=== PATIENT | female | born 1990 | race Caucasian/White ===

== ENCOUNTER → 2016-09-09 | Outpatient (CLI) | payer OTHER ==
[~2016-09-09] MED LIST: CHOL100027 PO; CLR10 PO; DOCU-94 PO; INSU70IN2 SC; MTR600X PO; NVLGI7030 SC; OXYC-57 PO; PRENTAB26 PO; SERT-234 PO
== END | disposition home or self-care (01) ==
LOC: C.LABSPEC 11:03
PROVIDERS: ATTEND Obstetrics & Gynecology
DX: O24.414 Gestational diabetes mellitus in pregnancy, insulin controlled (principal)

== ENCOUNTER 2016-09-17 22:53 | Observation (INO) | payer OTHER ==
[~2016-09-17] VITALS: Ht 160 cm; Wt 115.0 kg
[~2016-09-17 22:53] MED LIST changes: -DOCU-94 PO; -INSU70IN2 SC; -MTR600X PO; -NVLGI7030 SC; -OXYC-57 PO; -SERT-234 PO
[2016-09-17 23:48] VITALS: Ht 160 cm; Wt 115.0 kg
[2016-09-17] MEDS ORDERED: INSU70IN2 SC ×2 (23:54)
[2016-09-17] MEDS ORDERED: NVLGI7030 SC ×2 (23:55)
[2016-09-17] MEDS ORDERED: SERT-234 PO ×2 (23:56)
[2016-09-17] MEDS ORDERED: DOCU-94 PO ×2 (23:56)
[2016-09-18] MEDS ORDERED: IV FLUIDS COMPLETED PRN (01:41)
--- NOTE | 2016-09-22 10:43 | DISCHARGE SUMMARY ---
The patient was seen in labor and delivery for irregular contractions. Her cervix was closed, soft and -2 station. After several hours, she had cervical exam remained unchanged and contractions had spaced out. The patient was sent home in good condition. heart rate was category 1 the entire time in labor and delivery. She was given instructions to call for contractions that were stronger, ruptured membranes, heavy vaginal bleeding or any other concerns.
[2016-09-23] MEDS ORDERED: MTR600X PO ×2 (06:34)
[2016-09-23] MEDS ORDERED: OXYC-57 PO ×2 (06:34)
== END 2016-09-18 01:41 | disposition home or self-care (01) ==
LOC: C.LD 22:53 → C.OPB 22:53 → C.LD 09-18 01:29
PROVIDERS: ADMIT Obstetrics & Gynecology; ATTEND Obstetrics & Gynecology
DX: O62.9 Abnormality of forces of labor, unspecified (principal); O24.414 Gestational diabetes mellitus in pregnancy, insulin controlled; Z3A.37 37 weeks gestation of pregnancy

== ENCOUNTER 2016-09-21 06:31 | Inpatient (IN) | payer OTHER ==
[2016-09-21] VITALS (16 sets, daily range): BP systolic 119–154; BP diastolic 75–92; PULSE 89–106; TEMP 36.6–37; O2SAT 97–100; Ht 160 cm; Wt 113.6 kg
[~2016-09-21] VITALS: Ht 160 cm; Wt 113.6 kg
[~2016-09-21 06:31] MED LIST changes: +CEFAZOLIN IV 3,000 MG in DEXTROSE 5% 50ML 50 ML IV SCH; +DOCU-94 PO; +INSU70IN2 SC; +NVLGI7030 SC; +SERT-234 PO
[2016-09-21] MEDS ORDERED: LACTATED RINGER'S 1000ML 1,000 ML IV ONE (06:38)
[2016-09-21] MEDS ORDERED: LACTATED RINGER'S 1000ML 1,000 ML IV SCH ×2 (06:38→08:37)
[2016-09-21] MEDS ORDERED: CITRIC ACID/SODIUM CITRATE 15 ML UDC PO ONE (06:45)
[2016-09-21 07:08] LABS: HEMATOCRIT 39.7 % (37-47); MEAN CORPUSCULAR HGB CONC 33.8 g/dl (32-36); MEAN PLATELET VOLUME 10.4 fL (7.4-10.4); PLATELET COUNT 126 K/uL (130-400); RED BLOOD COUNT 4.96 M/uL (4.2-5.4); WHITE BLOOD COUNT 8.66 K/uL (4.8-10.8)
--- NOTE | 2016-09-21 07:10 | Medical Student: [facility] ---
Med Student History & Physical Date of Service Sep 21, 2016. Chief Complaint Check Ruptured Membranes History of Present Illness Source: patient, clinic records This is 26 year-old female with GA 38 weeks (SAFIA 10/05/2016) presented with rupture of membrane at 5:30 AM today and contractions q2-3min. She states that there were vaginal fluid with blood. movement is present. She denies cramping or pain. She came to L&D on Sep 18, 2015 with c/o contractions and got discharged after 6hrs of observation. Her course of is uncomplicated except for gestational diabetes. She is AB+, GBS-, Rubella immune. 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 Menarche 9 Menstrual cycle is normal prior to every 32 days Last pap 03/06/2015 - normal Past Medical History Depression Vitamin D deficiency Chicken pox Hx of genital herpes infection Past Surgical History C-sections (three) Family History Father - heart disease (unspecified) Social History Smoking Status: Never Smoker Smokeless Tobacco Use: No Alcohol Use: none Drug Use: none Marital Status: Housing status: lives with family Occupational Status: other (homemaker) Allergies Coded Allergies: Adhesives (Verified Allergy, Mild, RASH, 09/17/16) Iodinated Diagnostic Agents (Verified Allergy, Unknown, Rash, 02/15/16) CAT scan Home Medications Cholecalciferol (Vitamin D 1000 Unit), 3,000 INTER.UNIT PO DAILY Docusate Sodium (Colace), 2 CAP PO BID Insulin Aspart 70/30 (Novolog Mix 70/30), 10 SC AC Insulin Isophan/Regular (Novolin 70/30), 35 SC QPM Loratadine (Claritin), 10 MG PO DAILY Multivit/Min/Iron/Fol Ac/Pren ( Vitamin), 1 TAB PO DAILY Sertraline (Zoloft), 100 MG PO DAILY Review of Systems Constitutional: No chills, No fever Respiratory: No shortness of breath Cardiovascular: No chest pain Abdomen: No nausea, No pain Genitourinary - Female: + vaginal bleeding, + vaginal discharge Allergic / Immunologic: + seasonal allergies Physical Exam General Appearance: WD/WN Head: atraumatic Eyes: normal inspection ENT: hearing grossly normal Neck: supple Respiratory/Chest: lungs clear, normal breath sounds Cardiovascular: regular rate, rhythm (for ), no murmur Abdomen / GI: + pertinent finding () Genitourinary - Female: + pertinent finding (Exam today ) Extremities: normal inspection Skin: normal color Monitoring External Monitor: assessment - FHR 130-140, moderate variable, acceleration, no deceleration. Laboratory Results Test 09/21/16 06:38 Assessment and Plan This is 26 yo female with GA 38 weeks presented with rupture membrane, contraction q2-3min, and She had 3 prior C-sections Blood type AB+, GBS-, Rubella immune Plan with BTL
[2016-09-21] MEDS ORDERED: OXYTOCIN INJ 10 UNITS/ML VIAL ONE ×2 (07:22→08:16)
[2016-09-21] MEDS ORDERED: FENTANYL CITRATE INJ 50 MCG/1 ML 2 ML VIAL ONE (07:22)
[2016-09-21] MEDS ORDERED: MoRPHine SULFATE PF 1 MG/ML 10 ML AMP/VIAL ONE (07:22)
[2016-09-21] MEDS ORDERED: PHENYLEPHRINE HCL INJ 10 MG/ML VIAL ONE (07:23)
[2016-09-21] MEDS ORDERED: NALOXONE HCL INJ 1 MG in SODIUM CHLORIDE 0.9% 1000ML 1,000 ML IV PRN (08:19)
[2016-09-21] MEDS ORDERED: SODIUM CHLORIDE 0.9% 1000ML 1,000 ML IV PRN (08:19)
[2016-09-21] MEDS ORDERED: LACTATED RINGER'S 1000ML 500 ML IV PRN (08:19)
[2016-09-21] MEDS ORDERED: NALOXONE HCL INJ 0.08 MG in SYRINGE 1.8 ML IV PRN (08:19)
[2016-09-21] MEDS ORDERED: NALOXONE HCL 0.4 MG/1 ML VIAL/CARP IV PRN (08:30)
[2016-09-21] MEDS ORDERED: NO NARCOTICS OR SEDATIVES SCH (08:30)
[2016-09-21] MEDS ORDERED: MEPERIDINE HCL 25 MG/ML CARP IV PRN (08:30)
[2016-09-21] MEDS ORDERED: ONDANSETRON INJ 2 MG/ML 2 ML VIAL IV PRN (08:30)
[2016-09-21] MEDS ORDERED: MoRPHine SULFATE PF 1 MG/ML 10 ML AMP/VIAL EPI PRN (08:30)
[2016-09-21] MEDS ORDERED: MoRPHine SULFATE 2 MG/ML CARP IV PRN (08:30)
[2016-09-21] MEDS ORDERED: EpHEDrine SULFATE INJ 50 MG/ML AMP IV PRN (08:30)
[2016-09-21] MEDS ORDERED: SENNA 8.6 MG TAB PO PRN (08:45)
[2016-09-21] MEDS ORDERED: DC PCA PRN (08:45)
[2016-09-21] MEDS ORDERED: DIPHTHERIA/TETANUS/PERTUSSIS 0.5 ML SYR/VIAL IM. ONE (08:45)
[2016-09-21] MEDS ORDERED: MAGNESIUM HYDROXIDE SUSP 30 ML UDC PO PRN (08:45)
[2016-09-21] MEDS ORDERED: LANOLIN OINT EXT PRN ×2 (08:45)
--- NOTE | 2016-09-21 08:45 | [facility] Post Operative Brief Note ---
Immediate Operative Summary Operative Date Sep 21, 2016. Pre-Operative Diagnosis 26yo @ 38 0/7w H/o x 3 Spontaneous labor, SROM GDMA2 Depression Post-Operative Diagnosis Same Procedure(s) Performed Repeat low transverse section, bilateral tubal ligation Surgeon Caitlin Christensen DO Apple Picker Surgeon(s) Reggie Sandra MD Estimated Blood Loss 600ml Findings Viable female . Apgars 2/6/8. Weight pending. Normal uterus, tubes, ovaries. Fluids (cc crystalloids) 2300cc Specimens Placenta, membranes Bilateral fallopian tube sections Cord gas Drains reeder to gravity, 80cc clear yellow Anesthesia spinal Complication(s) None Disposition L&D
--- NOTE | 2016-09-21 08:53 | Medical Student: [facility] ---
Immediate Operative Summary Operative Date Sep 21, 2016. Pre-Operative Diagnosis . BTL. 3 prior C-sections. Post-Operative Diagnosis Same Procedure(s) Performed Low transverse BTL Surgeon Dr. Christensen Authorizer Surgeon(s) Dr. Sandra Estimated Blood Loss 600cc Findings Viable female infant. Normal uterus, ovaries, and fallopian tubes. Fluids (cc crystalloids) 2300cc Specimens Cord blood Placenta Fallopian tube sections - bilateral Drains Alex catheter Anesthesia Epidural Complication(s) None Disposition L&D
[2016-09-21] MEDS: SIMETHICONE 80 MG CHEW PO SCH ×4 (09:00→19:49)
[2016-09-21] MEDS: DiphenhydrAMINE HCL 50 MG/ML VIAL IV PRN ×3 (09:00→19:49)
[2016-09-21] MEDS: NALBUPHINE HCL INJ 10 MG/ML AMP IV PRN ×4 (09:19→22:18)
--- NOTE | 2016-09-21 09:30 | OPERATIVE REPORT ---
DATE OF OPERATION: 09/21/2016 PREOPERATIVE DIAGNOSIS: 1. A 26-year-old G4, P3-0-0-3 at 38 weeks 0 days. 2. History of section x3. 3. Spontaneous labor with spontaneous rupture of membranes. 4. GDMA2. 5. Depression. POSTOPERATIVE DIAGNOSIS: Same. PROCEDURES PERFORMED: Repeat low transverse section with bilateral tubal ligation. SURGEON: Irma Christensen D.O. TICKET AGENT: Bonnie Sandra M.D. ESTIMATED BLOOD LOSS: 600 mL. FINDINGS: Viable female , Apgars 2, 6 and 8, weight pending, please see nursing notes. Normal uterus, tubes, and ovaries. FLUIDS: 2300 mL. SPECIMENS: Placenta and membranes, bilateral fallopian tubes sections, and cord gas. DRAINS: Alex to gravity, 80 mL clear yellow at the conclusion of the case. ANESTHESIA: Spinal. COMPLICATIONS: None. DISPOSITION: Labor and delivery. INDICATIONS FOR PROCEDURE: The patient is a 26-year-old G4, P3-0-0-3 at 38 and 0 who presented in spontaneous labor. She had grossly ruptured membranes and with history of section x3, we proceeded to section. DESCRIPTION OF PROCEDURE: The patient signed informed consent for both repeat section and tubal ligation. She was then taken to the operating room where spinal anesthesia was introduced. She was then prepared and draped in the usual sterile fashion in the supine position with a leftward tilt. Three grams of Ancef was infused prior to skin incision. The skin incision was made with a scalpel and carried through to the underlying layer of fascia with Bovie. The fascia was nicked at midline and using Bovie over hemostat technique, the incision was extended bilaterally. The superior aspect of the fascial incision was grasped with Wilfrid clamps x2, elevated off the underlying rectus abdominis muscles and dissected both bluntly and with Bovie. In a similar fashion, the inferior aspect of the incision was dissected. The muscles were at midline with hemostats and the peritoneum was entered bluntly digitally. The bladder blade was placed. The abdomen was inspected. A bladder flap was made using Metzenbaum scissors and Vietnamese forceps. The bladder blade was replaced. The uterine incision was made with a new scalpel and extended bilaterally bluntly. The was delivered from a cephalic presentation. The head delivered first, no nuchal cord was noted, followed by the shoulders, followed by the body. The cord was doubly clamped and cut and the baby was immediately handed off to the waiting pediatrics team. A segment of cord was retained for cord blood gases. Cord blood was obtained. The placenta was delivered spontaneously intact with a 3-vessel cord using gentle traction. The uterus was then exteriorized from the abdomen. The bladder blade was replaced and a left-sided extension of the uterine incision was noted. This was repaired incorporated into the hysterotomy repair using 0 Vicryl in a running locked stitch. The posterior uterus was evaluated and appeared normal. An additional [id number] suture of 0 Vicryl was used to obtain excellent hemostasis at the hysterotomy incision. The tubal ligation was then performed, the right fallopian tube was grasped with a [place] clamp. This was confirmed to be the tube as fimbriae were noted. The tube was ligated x2 with 3-0 chromic. A segment of tube was then removed and cautery was used to obtain hemostasis. In a similar fashion, the left tube was ligated. The uterus was then returned to the abdomen. The hysterotomy incision was again inspected and excellent hemostasis was noted. The gutters were cleared of all clots and debris. The fascia was then reapproximated using 0 Vicryl in a running stitch. Two layers of plain gut 2-0 suture were used to reapproximate the subcutaneous adipose tissue and the skin was reapproximated using 4-0 Vicryl in a running subcuticular stitch. Steri-Strips and a bandage were applied. The patient was then taken from the operating room to her labor and delivery room in stable and good condition. I attest to the content of the Intraoperative Record and any orders documented therein. Any exceptio ns are noted below.
[2016-09-21] MEDS: OXYTOCIN INJ 20 UNITS in LACTATED RINGER'S 1000ML 1,000 ML IV SCH ×2 (09:38→18:52)
--- NOTE | 2016-09-21 10:16 | Anesthesiology Progress Note ---
Anesthesia Post Op Note Date & Time Sep 21, 2016 at 10:15 Notes Mental Status: alert / awake / arousable, participated in evaluation Pt Amnestic to Procedure: Yes Nausea / Vomiting: adequately controlled Pain: adequately controlled Airway Patency, RR, SpO2: stable & adequate BP & HR: stable & adequate Hydration State: stable & adequate Neuraxial Anesthesia: was administered, sensory block is resolving Anesthetic Complications: no major complications apparent
[2016-09-21] MEDS: KETOROLAC TROMETHAMINE 30 MG/ML VIAL IV. PRN ×2 (12:07→22:17)
[2016-09-21] MEDS: DOCUSATE SODIUM 100 MG CAP PO SCH (19:49)
[2016-09-21] MEDS: CHOLECALCIFEROL 1000 INTER.UNIT TAB PO SCH (22:19)
[2016-09-22] VITALS: O2SAT 96
[2016-09-22] MEDS ORDERED: MEPERIDINE HCL 75 MG/ML CARP IV PRN (02:00)
[2016-09-22] MEDS ORDERED: MEPERIDINE HCL 50 MG/ML CARP IV PRN (02:00)
[2016-09-22] MEDS ORDERED: DC INTRASPINAL MORPHINE ONE (02:00)
[2016-09-22] MEDS ORDERED: OXYCODONE/ACETAMINOPHEN 5-325 TAB PO PRN (02:00)
[2016-09-22] MEDS ORDERED: KETOROLAC TROMETHAMINE 30 MG/ML VIAL IV. PRN (02:00)
[2016-09-22] MEDS ORDERED: DiphenhydrAMINE HCL 50 MG/ML VIAL IV PRN (02:00)
[2016-09-22] MEDS: IBUPROFEN 600 MG TAB PO PRN ×5 (03:13→21:39)
[2016-09-22] MEDS: OXYCODONE/ACETAMINOPHEN 5-325 TAB PO PRN ×5 (03:14→21:39)
[2016-09-22 04:15] VITALS: BP 116/75; PULSE 95; TEMP 36.7; O2SAT 98
--- NOTE | 2016-09-22 06:50 | Progress Note ---
Subjective Sep 22, 2016. Subjective conversation w/ patient, physical exam Ambulation: ambulating normally Voiding: no voiding problems Passing Gas: Yes Diet Tolerance: Regular Diet Lochia: Small Feeding Type: Breast Feeding Pain: Incisional pain well controlled with Motrin and Percocet Review of Systems Constitutional: No chills, No fever Respiratory: No cough, No shortness of breath Cardiac: No chest pain Breast: No breast pain Abdomen: No nausea, No pain, No vomiting Female : No dysuria Objective Vital Signs Date Time Temp Pulse Resp B/P Pulse Ox O2 Delivery O2 Flow Rate FiO2 09/22/16 04:15 36.7 95 20 116/75 98 Room Air 09/22/16 00:00 16 96 09/21/16 23:25 99 Room Air 09/21/16 23:25 36.8 98 18 137/85 99 Room Air 09/21/16 23:00 18 99 09/21/16 22:00 18 98 09/21/16 21:00 16 97 09/21/16 20:30 37.0 94 16 119/75 98 Room Air 09/21/16 20:00 16 98 09/21/16 18:54 18 98 09/21/16 17:58 18 100 09/21/16 17:00 18 98 09/21/16 16:15 18 98 09/21/16 15:15 36.9 94 18 130/77 97 Room Air 09/21/16 15:15 18 97 09/21/16 15:15 97 Room Air 09/21/16 14:10 18 97 09/21/16 14:10 36.9 89 89 131/80 97 Room Air 09/21/16 13:00 36.6 90 18 131/81 98 Room Air 09/21/16 13:00 18 98 09/21/16 12:00 36.6 96 18 140/75 97 Room Air 09/21/16 12:00 18 97 09/21/16 11:30 36.8 106 18 154/92 98 Room Air 09/21/16 11:05 89 18 132/84 98 Room Air 09/21/16 11:05 18 98 09/21/16 11:05 98 Room Air 09/21/16 11:05 98 Room Air Physical Exam General Appearance: WELL-APPEARING, WD/WN, NO APPARENT DISTRESS Respiratory/Chest: lungs clear, normal breath sounds Cardiovascular: regular rate, rhythm, no gallop, no murmur Abdomen: non tender, soft Fundus: Firm, Relation to Umbilicus (1cm below umbilicus) Incision Description: Clean, Dry & Intact Extremities: no calf tenderness Laboratory Results Last 24 Hours Test 09/21/16 06:50 09/21/16 07:26 09/21/16 12:17 09/22/16 06:07 White Blood Count 8.66 K/uL Red Blood Count 4.96 M/uL Hemoglobin 13.4 g/dL Hematocrit 39.7 % Mean Corpuscular Volume 80.0 fL Mean Corpuscular Hemoglobin 27.0 pg Mean Corpuscular Hemoglobin Concent 33.8 g/dl RDW Standard Deviation 44.2 fL RDW Coefficient of Variation 15.2 % Platelet Count 126 K/uL Mean Platelet Volume 10.4 fL Bedside Glucose 83 mg/dl 98 mg/dl Medications Current Inpatient Medications Medications (Trade) Dose Ordered Sig/Kiel Route Start Time Stop Time Status Last Admin Dose Admin Oxytocin 20 units/ Lactated Ringer's 1,002 ml @ 125 mls/hr Q8H1M IV 09/21/16 08:37 10/21/16 08:36 09/21/16 18:52 125 MLS/HR Lactated Ringer's (Lr 1000ml) 1,000 ml @ 125 mls/hr Q8H IV 09/21/16 08:37 10/21/16 08:36 Ketorolac Tromethamine (Toradol Inj) 30 mg Q6H PRN IV. 09/22/16 02:00 09/26/16 01:59 Meperidine HCl (Demerol Inj) 50 mg Q4H PRN IV 09/22/16 02:00 10/06/16 01:59 Meperidine HCl (Demerol Inj) 75 mg Q4H PRN IV 09/22/16 02:00 10/06/16 01:59 Oxycodone/ Acetaminophen (Percocet 5-325mg Tab) 1 tab Q4H PRN PO 09/22/16 02:00 10/06/16 01:59 09/22/16 03:14 1 TAB Oxycodone/ Acetaminophen (Percocet 5-325mg Tab) 2 tab Q4H PRN PO 09/22/16 02:00 10/06/16 01:59 Ibuprofen (Motrin Tab) 600 mg Q4H PRN PO 09/21/16 08:45 10/21/16 08:44 09/22/16 03:13 600 MG Prenat Multivit/ [place]/Iron/Folic Ac ( Vitamin Tab) 1 tab DAILY PO 09/22/16 08:00 10/22/16 07:59 Bisacodyl (Dulcolax Tab) 5 mg HS ONCE PO 09/22/16 22:00 09/22/16 22:01 Bisacodyl (Dulcolax Supp) 10 mg PRN PRN NC 09/23/16 08:45 10/23/16 08:44 Docusate Sodium (coLACE CAP) 100 mg BID PO 09/21/16 20:00 10/21/16 19:59 09/21/16 19:49 100 MG Magnesium Hydroxide (Milk Of Magnesia Susp) 30 ml HS PRN PO 09/21/16 08:45 10/21/16 08:44 Lanolin (Lanolin Oint) PRN PRN EXT 09/21/16 08:45 10/21/16 08:44 Simethicone (Mylicon Chew Tab) 80 mg QID PO 09/21/16 09:00 10/21/16 08:59 09/21/16 19:49 80 MG Diphenhydramine HCl (Benadryl Cap) 25 mg QID PRN PO 09/22/16 02:00 10/22/16 01:59 09/22/16 04:16 25 MG Diphenhydramine HCl (Benadryl Inj) 25 mg QID PRN IV 09/22/16 02:00 10/22/16 01:59 Senna (Senokot Tab) 17.2 mg HS PRN PO 09/21/16 08:45 10/21/16 08:44 Sertraline HCl (Zoloft Tab) 100 mg QAM PO 09/22/16 08:00 10/22/16 07:59 09/21/16 22:17 100 MG Cholecalciferol (Vitamin D Tab) 3,000 inter.unit QPM PO 09/21/16 21:00 10/21/16 20:59 09/21/16 22:19 3,000 INTER.UNIT Assessment and Plan Problem List Medical Problems: (1) Intrauterine normal Status: Acute Post-Op Day#: 1 Continue Routine Care: - Vital Signs reviewed and WNL (temp max 36.7) - Blood Type: AB+, GBS- , Rubella Immune - Patient doing well clinically - Encourage Ambulation today - Tolerating PO Diet - Pain well controlled with Motrin and Percocet Resident Physician Supervision Note: I interviewed and examined the patient. Discussed with Dr. Tiwari and agree with findings and plan as documented in the note. Any exceptions or clarifications are listed here: Doing well. Routine care. Documented By: Bonnie Sandra
[2016-09-22 06:54] LABS: BASO % 0.1 %; BASO ABS # 0.01 K/uL (0-0.2); COMPLETE YES; EOS % 1.2 %; HEMATOCRIT 33.7 % (37-47); IG% 0.1 %; LYMPH % 22.4 %; LYMPH ABS # 1.71 K/uL (1.2-3.4); MEAN CELL VOLUME 78.7 fL (80-100); MEAN CORPUSCULAR HEMOGLOBIN 26.6 pg (25-34); MEAN CORPUSCULAR HGB CONC 33.8 g/dl (32-36); MEAN PLATELET VOLUME 10.8 fL (7.4-10.4); MONO % 7.3 %; NEUT % 68.9 %; PLATELET COUNT 110 K/uL (130-400); RED BLOOD COUNT 4.28 M/uL (4.2-5.4); WHITE BLOOD COUNT 7.64 K/uL (4.8-10.8)
[2016-09-22 07:45] VITALS: BP 111/74; PULSE 89; TEMP 36.6; O2SAT 98
[2016-09-22] MEDS ORDERED: SERTRALINE HCL 100 MG TAB PO SCH ×2 (08:00→21:00)
[2016-09-22] MEDS: PRENATAL VITAMIN TAB PO SCH (08:33)
[2016-09-22] MEDS: SIMETHICONE 80 MG CHEW PO SCH ×4 (08:33→21:04)
[2016-09-22] MEDS: DOCUSATE SODIUM 100 MG CAP PO SCH ×2 (08:33→21:04)
[2016-09-22 16:00] VITALS: BP 142/83; PULSE 90; TEMP 36.6; O2SAT 97
[2016-09-22] MEDS: CHOLECALCIFEROL 1000 INTER.UNIT TAB PO SCH (21:05)
[2016-09-22] MEDS ORDERED: NURSING VERBAL MED ORDER ONE (21:15)
[2016-09-22] MEDS ORDERED: BISACODYL 5 MG TABEC PO ONE (22:00)
[2016-09-22 23:09] VITALS: BP 134/85; PULSE 86; TEMP 36.7
[2016-09-23] MEDS ORDERED: OXYC-57 PO ×2 (06:34)
[2016-09-23] MEDS ORDERED: MTR600X PO ×2 (06:34)
--- NOTE | 2016-09-23 06:35 | Discharge Instructions ---
Discharge Instructions Admission Reason for Admission: LABOR Discharge Discharge Diagnosis / Problem: recovery from repeat section Discharge Goals Goal(s): Routine recovery after Medications Continue Dispensed Medications: lansinoh Activity Recommendations Activity Limitations: per Instructions/Follow-up section . Instructions / Follow-Up Instructions / Follow-Up ACTIVITY RECOMMENDATIONS: * Gradual return to full activity over the next 2-3 weeks. * No lifting - nothing heavier than baby over the next 2-3 weeks. * Do not engage in vigorous exercise, sexual activity or sports until cleared by your physician. * Do not drive or operate any motorized equipment until cleared by your physician. * You may shower/bathe daily. MEDICATIONS: For discomfort or pain, you may use Acetaminophen (Tylenol), Ibuprofen (Advil), or Naproxen (Aleve) following the package directions. For constipation you may use Colace following the package directions. BREAST CARE: If you are not breast feeding: * Wear a supportive bra 24 hours a day for one to two weeks. * Avoid stimulating your breasts and nipples as much as possible during the first few weeks after delivery. * When taking a shower, have the warm water hit your back, not breasts. * When your breasts feel full, apply ice packs. Usually three to four times a day helps ease the discomfort. * Take a mild pain medication (Tylenol / Motrin) when you are uncomfortable. If breast feeding: * Use breast milk to lubricate nipples. Lansinoh cream may be used for sore nipples. You do not need to remove cream prior to breast feeding. If using a different brand of cream, check the label for directions regarding removal of cream prior to nursing. * Wear a supportive bra. * If having problems with breasts or breast feeding, call a in home sales consultant or your health care provider. SPECIAL CARE INSTRUCTIONS: When you are discharged from the hospital, it is important for you to follow the instructions listed below: * During the first week at home, you should be able to care for yourself and your baby. In addition, the usual light household activities are encouraged. * Limit your activities to the way you feel. Do not try to clean the house or move furniture. Be sensible. * If you actively engage in sports and have done so up until the time of your delivery, you may resume these activities as soon as you feel able. This may take up to one month or even longer. Use good judgment. * Continue to take your vitamins for at least six weeks after the of your baby. * Your diet need not be limited unless you were on a special diet before your delivery. Breast-feeding mothers need around 2500 calories per day and at least 64-80 ounces of fluid per day (8 to 10 glasses). * You should eat foods from the four major food groups. Crash diets or fad diets are to be avoided. Eating lean meats, fresh fruits and vegetables, low-fat dairy products, high fiber foods and a regular exercise program, will help you get back to your pre- weight without putting your health at risk. * Constipation is sometimes a problem after delivery. Take a mild laxative as needed. If breast feeding, Milk of Magnesia is acceptable to use. You may use a suppository or Fleets enema. * A daily shower or tub bath is suggested. Wash incision daily with warm soapy water and pat dry. It doesn't need to be covered unless drainage is present. * A bloody vaginal discharge will usually continue until around four weeks . A small amount of bleeding may continue for as long as six weeks. Vaginal discharge changes from the bright red bleeding after delivery to pink then brownish and finally yellowish-pink before becoming white and disappearing. * Bleeding may increase with activity. Your first period may come in 4-8 weeks. If you are breast feeding, your period may be delayed even longer. * Abernathy (sex) can begin whenever both you and your partner feel comfortable and do not have any form of genital infection. It is recommended that you wait at least six weeks for internal and external healing to occur. If you have questions, please talk to your health care practitioner. A condom should be used to prevent infection and . * Foreplay, gentle intercourse and lubrication is very important the first several times to prevent pain. A water-based lubricant such as K-Y jelly or Astroglide may be used. * If you have RH negative blood and your baby is RH positive, you will receive RHOGAM by injection prior to discharge. The nurse will give you a card to keep with you that has the date and place that you received RHOGAM after delivery. * During your care, you had a Rubella screen done to check for the presence of rubella antibodies in your blood. If your test was negative, you will receive a Rubella vaccine prior to discharge. This vaccine may cause a fever, soreness at the injection site and flu-like symptoms. If these symptoms persist, notify your health care practitioner. is not advised for one month after a Rubella vaccine. * Verbalizes understanding of car seat law as reviewed with patient nursing. * Car Seat hand-out given and reviewed with patient by nursing. * Shaken baby information reviewed with patient by nursing. Call you doctor if: * Heavy bleeding (saturating several pads an hour) or passing clots the size of your fist. * A fever >101 degrees F (38.3 degrees C) on two occasions four hours apart and /or chills. * Unusual pain in the pelvic or vaginal areas. * Call the doctor for any increased redness, drainage or swelling around the incision and any pain unrelieved by prescribed pain medication. * "Baby Blues" lasting longer than two weeks. If you have any questions or concerns, call your health care practitioner at . FOLLOW UP VISIT: * Please call the office at to schedule a 6 week examination. It is important you keep this appointment. It is important for you to make arrangements for either yearly or twice yearly check-ups thereafter. Current Hospital Diet Patient's current hospital diet: Regular OB Diet Discharge Diet Recommended Diet: Regular OB Diet Procedures Procedures Performed: Casesarean section with delivery of live female infant at 0803 Bilateral tubal ligation Pending Studies Studies pending at discharge: no Medical Emergencies . Who to Call and When: Medical Emergencies: If at any time you feel your situation is an emergency, please call 911 immediately. . Non-Emergent Contact Non-Emergency issues call your: Primary Care Provider, Buy Boat Operator . . "Provider Documentation" section prepared by Mayra Krishna. VTE Core Measure Inpt VTE Proph given/why not?: Treatment not indicated
[2016-09-23] MEDS: IBUPROFEN 600 MG TAB PO PRN ×2 (06:39→10:54)
[2016-09-23] MEDS: OXYCODONE/ACETAMINOPHEN 5-325 TAB PO PRN ×2 (06:39→10:55)
--- NOTE | 2016-09-23 06:46 | Progress Note ---
Subjective Sep 23, 2016. Subjective conversation w/ patient, physical exam Ambulation: ambulating normally Voiding: no voiding problems Passing Gas: Yes Diet Tolerance: Regular Diet Lochia: Small Feeding Type: Breast Feeding Pain: Cramping well controlled with motrin and percocet Review of Systems Constitutional: No chills, No fever Respiratory: No cough, No shortness of breath Cardiac: No chest pain Breast: No breast pain Abdomen: No nausea, No pain, No vomiting Female : No dysuria Objective Vital Signs Date Time Temp Pulse Resp B/P Pulse Ox O2 Delivery O2 Flow Rate FiO2 09/22/16 23:11 Room Air 09/22/16 23:09 36.7 86 18 134/85 Room Air 09/22/16 16:00 97 Room Air 09/22/16 16:00 36.6 90 18 142/83 97 Room Air 09/22/16 07:45 98 Room Air 09/22/16 07:45 36.6 89 18 111/74 98 Room Air Physical Exam General Appearance: WELL-APPEARING, WD/WN, NO APPARENT DISTRESS Respiratory/Chest: lungs clear, normal breath sounds Cardiovascular: regular rate, rhythm, no gallop, no murmur Abdomen: non tender, soft Fundus: Firm, Relation to Umbilicus (1cm below) Incision Description: Clean, Dry & Intact Extremities: no calf tenderness Medications Current Inpatient Medications Medications (Trade) Dose Ordered Sig/[place] Route Start Time Stop Time Status Last Admin Dose Admin Oxytocin 20 units/ Lactated Ringer's 1,002 ml @ 125 mls/hr Q8H1M IV 09/21/16 08:37 10/21/16 08:36 09/21/16 18:52 125 MLS/HR Lactated Ringer's (Lr 1000ml) 1,000 ml @ 125 mls/hr Q8H IV 09/21/16 08:37 10/21/16 08:36 Ketorolac Tromethamine (Toradol Inj) 30 mg Q6H PRN IV. 09/22/16 02:00 09/26/16 01:59 Meperidine HCl (Demerol Inj) 50 mg Q4H PRN IV 09/22/16 02:00 10/06/16 01:59 Meperidine HCl (Demerol Inj) 75 mg Q4H PRN IV 09/22/16 02:00 10/06/16 01:59 Oxycodone/ Acetaminophen (Percocet 5-325mg Tab) 1 tab Q4H PRN PO 09/22/16 02:00 10/06/16 01:59 09/23/16 06:39 1 TAB Oxycodone/ Acetaminophen (Percocet 5-325mg Tab) 2 tab Q4H PRN PO 09/22/16 02:00 10/06/16 01:59 Ibuprofen (Motrin Tab) 600 mg Q4H PRN PO 09/21/16 08:45 10/21/16 08:44 09/23/16 06:39 600 MG Prenat Multivit/ [place]/Iron/Folic Ac ( Vitamin Tab) 1 tab DAILY PO 09/22/16 08:00 10/22/16 07:59 09/22/16 08:33 1 TAB Bisacodyl (Dulcolax Supp) 10 mg PRN PRN UT 09/23/16 08:45 10/23/16 08:44 Docusate Sodium (coLACE CAP) 100 mg BID PO 09/21/16 20:00 10/21/16 19:59 09/22/16 21:04 100 MG Magnesium Hydroxide (Milk Of Magnesia Susp) 30 ml HS PRN PO 09/21/16 08:45 10/21/16 08:44 Lanolin (Lanolin Oint) PRN PRN EXT 09/21/16 08:45 10/21/16 08:44 Simethicone (Mylicon Chew Tab) 80 mg QID PO 09/21/16 09:00 10/21/16 08:59 09/22/16 21:04 80 MG Diphenhydramine HCl (Benadryl Cap) 25 mg QID PRN PO 09/22/16 02:00 10/22/16 01:59 09/22/16 04:16 25 MG Diphenhydramine HCl (Benadryl Inj) 25 mg QID PRN IV 09/22/16 02:00 10/22/16 01:59 Senna (Senokot Tab) 17.2 mg HS PRN PO 09/21/16 08:45 10/21/16 08:44 Cholecalciferol (Vitamin D Tab) 3,000 inter.unit QPM PO 09/21/16 21:00 10/21/16 20:59 09/22/16 21:05 3,000 INTER.UNIT Sertraline HCl (Zoloft Tab) 100 mg DAILY@2100 PO 09/22/16 21:00 10/22/16 20:59 09/22/16 21:39 100 MG Assessment and Plan Problem List Medical Problems: (1) Intrauterine normal Status: Acute Post-Op Day#: 2 Continue Routine Care: Resident Physician Supervision Note: I interviewed and examined the patient. Discussed with Dr. Tiwari and agree with findings and plan as documented in the note. Any exceptions or clarifications are listed here: [None] Documented By: Mayra Krishna - Vital Signs reviewed and WNL (temp max 36.7) - Blood Type: AB+, GBS- , Rubella Immune - Patient doing well clinically - Encourage Ambulation today - Tolerating PO Diet - Pain well controlled with Motrin and Percocet - Discharge today
[2016-09-23 07:09] LABS: HEMATOCRIT 34.8 % (37-47)
[2016-09-23] MEDS ORDERED: BISACODYL 10 MG SUPP PR PRN (08:45)
[2016-09-23 09:00] VITALS: BP 138/81; PULSE 98; TEMP 36.7; O2SAT 98
[2016-09-23] MEDS: SIMETHICONE 80 MG CHEW PO SCH ×2 (09:18→12:50)
[2016-09-23] MEDS: PRENATAL VITAMIN TAB PO SCH (09:18)
[2016-09-23] MEDS: DOCUSATE SODIUM 100 MG CAP PO SCH (09:18)
[2016-09-23 10:01] VITALS: BP_DIAS 81; PULSE 98; TEMP 36.7
--- NOTE | 2016-10-03 03:06 | DISCHARGE SUMMARY ---
PROCEDURE: Repeat low transverse section. ADMISSION DIAGNOSES: 1. Term intrauterine . 2. History of section x3. 3. Spontaneous labor with spontaneous rupture of membranes. 4. Gestational diabetes mellitus A2. 5. Depression. DISCHARGE DIAGNOSES: Same. PROCEDURES: Repeat low transverse section with bilateral tubal ligation. COURSE OF STAY: The patient was admitted with spontaneous labor and the above noted diagnoses. Repeat section was performed as well as previously scheduled and patient requested bilateral tubal ligation. The patient had an unremarkable postoperative course and was discharged home on postop day #2. CONDITION ON DISCHARGE: Stable and good. MEDICATIONS: Please see discharge medication sheet. ACTIVITY: Pelvic rest. FOLLOWUP: In the office in 6 weeks.
== END 2016-09-23 13:15 | disposition home or self-care (01) | DRG 765 ==
LOC: C.LD 06:31 → C.OPB 06:31 → C.LD 06:43 → C.OBG 11:10
PROVIDERS: ADMIT Obstetrics & Gynecology; ATTEND Obstetrics & Gynecology
PROC: 0UB70ZZ Excision of Bilateral Fallopian Tubes, Open Approach (ICD-10-PCS; principal; 2016-09-21 07:07)
PROC: 10D00Z1 Extraction of Products of Conception, Low, Open Approach (ICD-10-PCS; principal; 2016-09-21 07:07)
DX: O34.211 Maternal care for low transverse scar from previous cesarean delivery (principal); Z68.41 Body mass index [BMI] 40.0-44.9, adult; O24.424 Gestational diabetes mellitus in childbirth, insulin controlled; O99.52 Diseases of the respiratory system complicating childbirth; J30.2 Other seasonal allergic rhinitis; O99.344 Other mental disorders complicating childbirth; F41.9 Anxiety disorder, unspecified; F32.9 Major depressive disorder, single episode, unspecified; O99.214 Obesity complicating childbirth; Z37.0 Single live birth; Z3A.38 38 weeks gestation of pregnancy; Z30.2 Encounter for sterilization; Z79.4 Long term (current) use of insulin; Z79.899 Other long term (current) drug therapy

== ENCOUNTER → 2016-12-30 | Outpatient (CLI) | payer OTHER ==
[~2016-12-30] MED LIST changes: -CEFAZOLIN IV 3,000 MG in DEXTROSE 5% 50ML 50 ML IV SCH; -INSU70IN2 SC; +MTR600X PO; -NVLGI7030 SC; +OXYC-57 PO
[2016-12-30 13:19] LABS: ESTIMATED AVERAGE GLUCOSE 103 mg/dl; HA1C FLAG Normal (Normal)
== END | disposition home or self-care (01) ==
LOC: C.LABBFT 07:36
PROVIDERS: ATTEND Nurse Practitioner
DX: Z86.32 Personal history of gestational diabetes (principal)

== ENCOUNTER → 2017-01-29 | Outpatient (CLI) | payer OTHER ==
[2017-01-29 12:57] LABS: THYROID STIMULATING HORMONE 1.96 uIu/ml (0.300-4.500)
== END | disposition home or self-care (01) ==
LOC: C.LABBFT 10:21
PROVIDERS: ATTEND Nurse Practitioner
DX: R63.5 Abnormal weight gain (principal)

== ENCOUNTER → 2017-02-11 | Outpatient (CLI) | payer OTHER ==
--- NOTE | 2017-02-11 14:19 | DIAGNOSTIC IMAGING REPORT ---
ABDOMEN AND PELVIS CT WITH ORAL CONTRAST CT DOSE: 1077.42 mGycm HISTORY: Pain. Nausea. R10.31 Abdominal pain, acute, right lower quadrant IV CONTRAST TECHNIQUE: Multiaxial CT images of the abdomen and pelvis were performed following the use of oral contrast. COMPARISON STUDY: None. FINDINGS: Lung bases are clear. Liver spleen pancreas is unremarkable. The appendix is identified and is normal. Bowel pattern is nonobstructive. Bladder is midline. Uterus is anteflexed. There is no evidence for ovarian enlargement. Moderate mesenteric adenopathy. Appearances suggestive of mesenteric adenitis. IMPRESSION: 1. Normal appendix. 2. Mesenteric adenitis. 3. Normal nonobstructive bowel pattern. Electronically signed by: Walt Madison M.D. 02/11/2017 2:17 PM Dictated Date/Time: 02/11/2017 2:12 PM
== END | disposition home or self-care (01) ==
LOC: C.CTS 11:53
PROVIDERS: ATTEND Nurse Practitioner
DX: R10.31 Right lower quadrant pain (principal); I88.0 Nonspecific mesenteric lymphadenitis

== ENCOUNTER → 2017-02-11 | Outpatient (CLI) | payer OTHER ==
[2017-02-11 12:20] LABS: BASO % 0.8 %; BASO ABS # 0.06 K/uL (0-0.2); COMPLETE YES; EOS % 1.7 %; HEMATOCRIT 40.6 % (37-47); IG% 0.4 %; LYMPH % 31.6 %; LYMPH ABS # 2.25 K/uL (1.2-3.4); MEAN CORPUSCULAR HEMOGLOBIN 26.1 pg (25-34); MEAN CORPUSCULAR HGB CONC 32.3 g/dl (32-36); MEAN PLATELET VOLUME 10.3 fL (7.4-10.4); NEUT % 59.5 %; PLATELET COUNT 165 K/uL (130-400); RED BLOOD COUNT 5.01 M/uL (4.2-5.4); WHITE BLOOD COUNT 7.12 K/uL (4.8-10.8)
[2017-02-11 12:56] LABS: ALT/SGPT 34 U/L (12-78); BLOOD UREA NITROGEN 8 mg/dl (7-18); BUN/CREATININE RATIO 11.2 (10-20); C-REACTIVE PROTEIN 1.18 mg/dl (0-0.29); CARBON DIOXIDE 27 mmol/L (21-32); CHLORIDE 107 mmol/L (98-107); CREATININE 0.69 mg/dl (0.60-1.20); GLUCOSE 96 mg/dl (70-99); POTASSIUM 3.5 mmol/L (3.5-5.1); SODIUM 143 mmol/L (136-145)
[2017-02-11 12:57] LABS: CALCIUM 8.3 mg/dl (8.5-10.1)
[2017-02-11 12:59] LABS: ALB/GLOB RATIO 0.9 (0.9-2); ALKALINE PHOSPHATASE 113 U/L (45-117); AST/SGOT 20 U/L (15-37)
== END | disposition home or self-care (01) ==
LOC: C.LABBFT 10:34
PROVIDERS: ATTEND Nurse Practitioner
DX: R11.0 Nausea (principal)

== ENCOUNTER → 2017-04-05 | Outpatient (CLI) | payer OTHER ==
--- NOTE | 2017-04-05 15:46 | DIAGNOSTIC IMAGING REPORT ---
L-SPINE MIN 4 VIEWS ROUTINE CLINICAL HISTORY: Lumbosacral back pain. COMPARISON: None FINDINGS: Alignment of the lumbar spine is anatomic. Vertebral body heights are maintained. There is no fracture or suspicious lesion. Disc spaces are preserved. There is mild endplate osteophytosis at several levels. IMPRESSION: 1. No lumbar spine fracture. 2. Essentially normal lumbar spine radiographs. Electronically signed by: Kelton Michael M.D. 04/05/2017 3:45 PM Dictated Date/Time: 04/05/2017 3:44 PM
== END | disposition home or self-care (01) ==
LOC: C.RAD1850 15:25
PROVIDERS: ATTEND Nurse Practitioner
DX: M25.562 Pain in left knee (principal); M54.5 Low back pain

== ENCOUNTER → 2017-07-30 | Outpatient (CLI) | payer OTHER ==
[~2017-07-30] MED LIST changes: -CLR10 PO; -DOCU-94 PO; -MTR600X PO; -OXYC-57 PO; -PRENTAB26 PO
--- NOTE | 2017-07-30 13:07 | DIAGNOSTIC IMAGING REPORT ---
LUMBAR SPINE W/O CONTRAST HISTORY: Pain. Neuropathy. BACK PAIN TECHNIQUE: Multiplanar multisequence MRI of the lumbar spine was performed without the use of contrast. COMPARISON: None. FINDINGS: For the purpose of the report the L5-S1 disc space will be located on axial image 23 of 25. Signal characteristics of the vertebral bodies are unremarkable. There is no bone marrow replacing process. Signal characteristics of the intervertebral discs are within normal limits. L1-L2: No significant central canal or neural foraminal narrowing. L2-L3: No significant central canal or neural foraminal narrowing. L3-L4: No significant central canal or neural foraminal narrowing. L4-L5: No significant central canal or neural foraminal narrowing. L5-S1: No significant central canal or neural foraminal narrowing. IMPRESSION: Normal study The above report was generated using voice recognition software. It may contain grammatical, syntax or spelling errors. Electronically signed by: Walt Madison M.D. 07/30/2017 1:05 PM Dictated Date/Time: 07/30/2017 1:04 PM
== END | disposition home or self-care (01) ==
LOC: C.MRI 12:16
PROVIDERS: ATTEND Nurse Practitioner
DX: M54.5 Low back pain (principal)

== ENCOUNTER → 2017-08-19 | Outpatient (CLI) | payer OTHER ==
--- NOTE | 2017-08-19 16:15 | DIAGNOSTIC IMAGING REPORT ---
RIGHT FIRST TOE 3 VIEWS HISTORY: FOREIGN BODY OF TOE WITH INFECTION COMPARISON: None. FINDINGS: There is no fracture or dislocation. Soft tissues are unremarkable. No definite radiopaque foreign bodies. Only the on the first image there is a less than 1 mm subtle density within the lateral soft tissues of the first toe. This likely represents debris on the skin. IMPRESSION: No definite radiopaque foreign bodies. Subtle 1 mm density within the lateral soft tissues of the first toe likely represents debris on the skin. Electronically signed by: Elijah Philip M.D. 08/19/2017 4:13 PM Dictated Date/Time: 08/19/2017 4:12 PM
== END | disposition home or self-care (01) ==
LOC: C.RAD1850 15:42
PROVIDERS: ATTEND Nurse Practitioner
DX: S90.456A Superficial foreign body, unspecified lesser toe(s), initial encounter (principal); X58.XXXA Exposure to other specified factors, initial encounter

== ENCOUNTER 2018-04-10 09:00 | Emergency (ER) | payer OTHER ==
[~2018-04-10] VITALS: Ht 160 cm; Wt 116.6 kg
[2018-04-10 09:08] VITALS: TEMP 36.7; Ht 160 cm; Wt 116.6 kg
[2018-04-10] MEDS ORDERED: SODIUM CHLORIDE 0.9% 1000ML 1,000 ML IV STA (09:40)
[2018-04-10 10:08] LABS: BASO % 0.2 %; BASO ABS # 0.02 K/uL (0-0.2); EOS % 0.8 %; EOS ABS # 0.07 K/uL (0-0.5); IG# 0.01 K/uL (0.00-0.02); LYMPH % 24.3 %; LYMPH ABS # 2.11 K/uL (1.2-3.4); MEAN CELL VOLUME 78.8 fL (80-100); MEAN CORPUSCULAR HGB CONC 31.7 g/dl (32-36); MEAN PLATELET VOLUME 10.7 fL (7.4-10.4); MONO % 5.3 %; MONO ABS # 0.46 K/uL (0.11-0.59); NEUT % 69.3 %; NEUT ABS # 6.03 K/uL (1.4-6.5); PLATELET COUNT 159 K/uL (130-400); RED CELL DISTRIBUTION WIDTH CV 14.5 % (11.5-14.5); RED CELL DISTRIBUTION WIDTH SD 41.4 fL (36.4-46.3)
[2018-04-10 10:15] LABS: PTT PATIENT 28.5 SECONDS (21.0-31.0)
[2018-04-10 10:37] LABS: ALBUMIN 3.7 gm/dl (3.4-5.0); CALCIUM 8.9 mg/dl (8.5-10.1); CREATININE 0.65 mg/dl (0.60-1.20); POTASSIUM 3.9 mmol/L (3.5-5.1); TOTAL PROTEIN 7.8 gm/dl (6.4-8.2)
[2018-04-10] MEDS ORDERED: SULF800T23 PO (11:16)
[2018-04-10 11:44] VITALS: BP 136/80; PULSE 80; O2SAT 98
--- NOTE | 2018-04-11 06:03 | EMERGENCY ROOM VISIT NOTE ---
ED Visit Note First contact with patient: 09:25 Chief Complaint: I have blood in my urine. History of Present Illness: Ms. Lowe is a 27-year-old white female who ambulates into the ED complaining of hematuria. Historically patient reports since her last section she has noted an stress incontinence; she reports she is moved from the sitting to standing position and accidentally pees herself. She has talked to her shellac polisher about this and she reports that she was told if the symptoms get worse that they were going to refer her to urology. Patient reports she was feeling fine over the last few days including the time just before bedtime last night. She reports she woke this morning and noted blood in her urine associated with urinary burning and since that time increased urinary frequency. She rates her urinary discomfort 3/10. Her pain is nonradiating. The pain is typically located at the end of urination. She has not identified any aggravating or alleviating factors related to her discomfort. She has not taken any medications for her discomfort prior to arrival at the hospital. Associated with her pain she does note some mild cramping in the suprapubic area. She denies fevers, chills, sweats, skin eruptions, skin color changes, upper respiratory tract symptoms, upper abdominal pain, nausea, vomiting, vaginal bleeding, vaginal discharge, back/flank pain, easy bruising, easy bleeding, unusual bleeding. Review of Systems: As noted above in history of present illness. At least body systems were reviewed and found to be negative as noted above. Past Medical History: Gestational diabetes, status post section and tubal ligation. Current Medications: Patient denied. Allergies to Medications: Iodinated diagnostic agents. Social History: Patient is not employed; she feels safe in her home environment ; she denies tobacco and alcohol use. Physical Examination: Vital Signs: Date Time Temp Pulse Resp B/P (MAP) Pulse Ox O2 Delivery O2 Flow Rate FiO2 04/10/18 11:44 80 18 136/80 98 04/10/18 09:08 36.7 86 18 140/82 98 Room Air GENERAL: 27-year-old female in mild distress due to symptoms, nontoxic-appearing , afebrile and hemodynamically stable. NEUROLOGICAL: Awake, alert and oriented to person, place and time. Answering questions appropriately and following commands. Normal gait. Good hand eye coordination. No focal motor sensory deficits. SKIN: Warm, dry and pink. No soft tissue eruptions or trauma noted. HEENT: Atraumatic and normocephalic. PERRLA. Sclera white and conjunctiva pink. No drainage from naris. Oral cavity moist and pink. Pharynx is nonerythematous or edematous. Speech normal. No lymphadenopathy. Trachea midline. No jugular venous distention. BACK: No tenderness over the bony spine. No CVA tenderness. THORAX: Lungs sounds are clear to auscultation and equal bilaterally with symmetrical chest wall. No wheezing, rales or rhonchi. No crepitus, tenderness , subcutaneous air or deformities noted. HEART: Regular rate and rhythm. No gallops, rubs or murmurs are appreciated. ABDOMEN: Obese and soft with mild tenderness in the suprapubic area. Positive bowel sounds in all quadrants. No guarding, rigidity or organomegaly. EXTREMITIES: Moves all extremities well on command and with purpose. All distal neurovascular statuses are intact and equal bilaterally. ED Course: Patient is assessed as noted above. Patient's medication list was reviewed. Laboratory Testing: Test 04/10/18 09:45 04/10/18 09:50 Range/Units Urine Color BROWN Urine Appearance CLOUDY CLEAR Urine pH 6.0 4.5-7.5 Urine Specific [place] >= 1.030 1.000-1.030 Urine Protein 2+ NEG Urine Glucose (UA) NEG NEG Urine Ketones NEG NEG Urine Occult Blood 3+ NEG Urine Nitrite NEG NEG Urine Bilirubin NEG NEG Urine Urobilinogen NEG NEG Urine Leukocyte Esterase NEG NEG Urine RBC >30 0-4 /hpf Urine WBC >30 0-5 /hpf Urine Epithelial Cells 10-20 0-5 /lpf Urine Bacteria 1+ NEG White Blood Count 8.70 4.8-10.8 K/uL Red Blood Count 5.20 4.2-5.4 M/uL Hemoglobin 13.0 12.0-16.0 g/dL Hematocrit 41.0 37-47 % Mean Corpuscular Volume 78.8 80-100 fL Mean Corpuscular Hemoglobin 25.0 25-34 pg Mean Corpuscular Hemoglobin Concent 31.7 32-36 g/dl Platelet Count 159 130-400 K/uL Mean Platelet Volume 10.7 7.4-10.4 fL Neutrophils (%) (Auto) 69.3 % Lymphocytes (%) (Auto) 24.3 % Monocytes (%) (Auto) 5.3 % Eosinophils (%) (Auto) 0.8 % Basophils (%) (Auto) 0.2 % Neutrophils # (Auto) 6.03 1.4-6.5 K/uL Lymphocytes # (Auto) 2.11 1.2-3.4 K/uL Monocytes # (Auto) 0.46 0.11-0.59 K/uL Eosinophils # (Auto) 0.07 0-0.5 K/uL Basophils # (Auto) 0.02 0-0.2 K/uL RDW Standard Deviation 41.4 36.4-46.3 fL RDW Coefficient of Variation 14.5 11.5-14.5 % Immature Granulocyte % (Auto) 0.1 % Immature Granulocyte # (Auto) 0.01 0.00-0.02 K/uL Prothrombin Time 10.2 9.0-12.0 SECONDS Prothromb Time International Ratio 1.0 0.9-1.1 Activated Partial Thromboplast Time 28.5 21.0-31.0 SECONDS Partial Thromboplastin Ratio 1.1 Sodium Level 139 136-145 mmol/L Potassium Level 3.9 3.5-5.1 mmol/L Chloride Level 105 98-107 mmol/L Carbon Dioxide Level 28 21-32 mmol/L Anion Gap 7.0 3-11 mmol/L Blood Urea Nitrogen 10 7-18 mg/dl Creatinine 0.65 0.60-1.20 mg/dl Est Creatinine Clear Calc Drug Dose 157.4 ml/min Estimated GFR () 139.1 Estimated GFR (Non- 120.0 BUN/Creatinine Ratio 15.0 10-20 Random Glucose 105 70-99 mg/dl Calcium Level 8.9 8.5-10.1 mg/dl Total Bilirubin 0.4 0.2-1 mg/dl Direct Bilirubin 0.1 0-0.2 mg/dl Aspartate Amino Transf (AST/SGOT) 21 15-37 U/L Alanine Aminotransferase (ALT/SGPT) 37 12-78 U/L Alkaline Phosphatase 98 45-117 U/L Total Protein 7.8 6.4-8.2 gm/dl Albumin 3.7 3.4-5.0 gm/dl Human Chorionic Gonadotropin, Qual NEG NEG Urine Culture: Pending Patient was hydrated with normal saline; patient was offered pain medication and refused. Patient was reassessed multiple times during her stay in the emergency department. Patient was educated about today's findings and instructed on her treatment plan ; she verbalized understanding and agreement with this plan. Clinical Impression: Acute hemorrhagic cystitis. Decision-Making: Initially my differential diagnosis I considered hemorrhagic cystitis, function uterine bleeding, hemorrhoids, and other causes. Disposition: Patient discharged home in stable condition; prior to departure she was reassessed and subjectively reported that she was pain and symptom-free. Plan: Patient was encouraged use ibuprofen or acetaminophen as needed for pain. Patient was prescribed Bactrim DS 2 times a day for 7 days. Patient was encouraged to stay well-hydrated with increased clear fluids. Patient was encouraged to follow-up with her PCP for recheck in 2-3 days and culture results. Patient was to follow-up with her shellac polisher for the referral to urology for incontinence. Patient was encouraged return the ED for worsening/uncontrolled pain, worsening bleeding, abnormal bleeding, fevers, severe back pain, vomiting or any new/ concerning symptoms
== END 2018-04-10 11:44 | disposition home or self-care (01) ==
LOC: C.EDB 09:01 → C.EDA 11:44
DX: N30.00 Acute cystitis without hematuria (principal)

== ENCOUNTER → 2018-04-14 | Outpatient (CLI) | payer OTHER ==
[~2018-04-14] MED LIST changes: -CHOL100027 PO; -SERT-234 PO; +SULF800T23 PO
== END | disposition home or self-care (01) ==
LOC: C.LABBFT 14:51
PROVIDERS: ATTEND Nurse Practitioner
DX: Z00.00 Encounter for general adult medical examination without abnormal findings (principal); R39.9 Unspecified symptoms and signs involving the genitourinary system